=== PATIENT | male | born 1950 | race Caucasian/White ===

== ENCOUNTER 2017-12-03 13:53 | Inpatient (IN) | payer MEDICARE ==
[~2017-12-03] VITALS: Ht 180.3 cm; Wt 108.0 kg
[~2017-12-03 13:53] MED LIST: DEXAMETHASONE SOD PHOS 4 MG/ML VIAL IV ONE; LACTATED RINGER'S 1000 ML INJ 1,000 ML IV ONE; LIDOCAINE HCL 1% PF 5 ML SYRINGE OTHER ONE; ONDANSETRON HCL 4 MG/2 ML VIAL IV ONE; PHENYLEPH/NS 1000 MCG/10 ML SYR IV ONE; PHENYLEPHRINE HCL 10 MG/ML VIAL IV ONE; PROPOFOL 200 MG/20 ML AMP IV ONE; ROCURONIUM INJ 50 MG/5 ML SYRINGE IV PUSH ONE; ceFAZolin INJ 1,000 MG VIAL IV ONE; ePHEDrine/NS 25 MG/5 ML SYRINGE IV ONE
[2017-12-03] MEDS ORDERED: HYDROmorphone HCL PF 2 MG/ML VIAL ONE (14:02)
[2017-12-03] MEDS: ceFAZolin 2 GM PREMIX 50 ML ONE ×2 (14:08→18:20)
[2017-12-03] MEDS ORDERED: DIPHTH/TETANUS/ACEL PERTUSSIS (BOOSTER) 0.5 ML VIAL/PFS IM ONE (14:09)
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
[2017-12-03 14:24] LABS: AUTOMATED NEUTROPHIL # 11.4 TH/MM3 (1.8-7.7); BASOPHIL % 0.2 % (0.0-2.0); EOSINOPHIL # 0.1 TH/MM3 (0-0.4); EOSINOPHIL % 0.8 % (0.0-4.0); HEMOGLOBIN 16.2 GM/DL (13.0-17.0); LYMPH % 22.6 % (9.0-44.0); LYMPHOCYTE # 3.7 TH/MM3 (1.0-4.8); MEAN CELL VOLUME 86.1 FL (80.0-100.0); MEAN CORPUSCULAR HEMOGLOBIN 29.7 PG (27.0-34.0); MEAN CORPUSCULAR HGB CONC 34.4 % (32.0-36.0); MEAN PLATELET VOLUME 9.5 FL (7.0-11.0); MONO % 6.8 % (0.0-8.0); MONOCYTE # 1.1 TH/MM3 (0-0.9); NEUT % 69.6 % (16.0-70.0); PLATELET COUNT 237 TH/MM3 (150-450); RED BLOOD COUNT 5.46 MIL/MM3 (4.50-5.90); RED CELL DISTRIBUTION WIDTH 13.2 % (11.6-17.2); WHITE BLOOD COUNT 16.4 TH/MM3 (4.0-11.0)
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
[2017-12-03] MEDS ORDERED: IOHEXOL 350 MG/ML 10 ML VIAL (for RAD DIAG) IVCONTRAST ONE (14:32)
[2017-12-03 14:37] VITALS: BP 159/76; PULSE 87; RESP 18; O2SAT 98
[2017-12-03 14:38] LABS: PROTHROMBIN TIME - PATIENT 10.6 SEC (9.8-11.6)
[2017-12-03] MEDS ORDERED: HYDR25TA5 PO (14:42)
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
[2017-12-03] MEDS ORDERED: ONDANSETRON HCL 4 MG/2 ML VIAL IV PUSH PRN (15:30)
[2017-12-03] MEDS ORDERED: ACETAMINOPHEN/HYDROcodone 325 MG/5 MG TAB PO PRN (15:30)
[2017-12-03] MEDS ORDERED: SODIUM CHLORIDE 0.9% FLUSH 10 ML FLUSH IV FLUSH PRN (15:30)
[2017-12-03] MEDS ORDERED: ENALAPRILAT 1.25 MG/ML VIAL IV PUSH PRN (15:30)
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
[2017-12-03 17:04] VITALS: BP 133/60; PULSE 89; RESP 18; O2SAT 97
[2017-12-03] MEDS: SODIUM CHLOR 0.9% 1000 ML INJ 1,000 ML IV SCH ×2 (17:08→21:12)
[2017-12-03] MEDS: ACETAMINOPHEN/HYDROcodone 325 MG/5 MG TAB PO PRN (17:09)
--- NOTE | 2017-12-03 17:12 | RADRPT ---
EXAM DATE/TIME: 12/03/2017 16:25 [facility] COMPARISON: FOOT LEFT LIMITED (2VWS), December 03, 2017, 14:34. INDICATIONS : Fracture MEDICAL HISTORY : None. SURGICAL HISTORY : None. ENCOUNTER: Initial ACUITY: 1 day PAIN SCORE: 4/10 LOCATION: Right clavicle FINDINGS: The examination demonstrates a mildly distracted fracture involving the distal right clavicle. There does appear to be in associated a.c. separation as well. The remainder the visualized osseous structures are intact. CONCLUSION: 1. Distracted fracture and a.c. separation involving the distal right clavicle. Nasim Evans MD on December 03, 2017 at 17:09 Board Certified Radiologist. This report was verified electronically.
[2017-12-03] MEDS ORDERED: GENTAMICIN SULFATE 80 MG/2 ML VIAL ONE ×2 (17:23→19:17)
[2017-12-03] MEDS ORDERED: ACETAMINOPHEN 1000 MG/100 ML 100 ML IV ONE (17:48)
[2017-12-03] MEDS ORDERED: GENTAMICIN 80 MG PREMIX 100 ML IV SCH (18:00)
[2017-12-03] MEDS ORDERED: ceFAZolin INJ 1,000 MG VIAL IV ONE (18:00)
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
[2017-12-03] MEDS: GENTAMICIN INJ 80 MG in SODIUM CHLORIDE 0.9% INJ 100 ML IV SCH (19:20)
[2017-12-03 20:45] VITALS: O2SAT 100
[2017-12-03] MEDS ORDERED: DO NOT ADM ANY ANTICOAGULANT DRUGS PRN (20:45)
--- NOTE | 2017-12-03 20:51 | RADRPT ---
EXAM DATE/TIME: 12/03/2017 19:53 [facility] COMPARISON: FOOT LEFT LIMITED (2VWS), December 03, 2017, 14:34. INDICATIONS : Open fracture- ORIF. EX FIX. MEDICAL HISTORY : None. SURGICAL HISTORY : None. ENCOUNTER: Initial ACUITY: 1 day PAIN SCORE: Non-responsive. LOCATION: Left Foot. FINDINGS: Intra-axial fixation of first and second metatarsal fractures and fracture dislocation of the third t oe. Alignment appears near-anatomic. There is a pin of the second metatarsal and also pin of the firs t metatarsal. CONCLUSION: Pending and external fixation of the left foot. Near-anatomic alignment. Tonny Gonzalez MD on December 03, 2017 at 20:47 Board Certified Radiologist. This report was verified electronically.
[2017-12-03] MEDS ORDERED: *morphine SULFATE 4 MG/ML PERIprocedure ONLY ONE ×2 (20:52→21:20)
[2017-12-03] MEDS ORDERED: DOCUSATE SODIUM 100 MG CAP PO SCH (21:00)
[2017-12-03] MEDS: BACITRACIN TOP OINT 15 GM TUBE TOP SCH (21:00)
--- NOTE | 2017-12-03 21:05 | HHI.PR ---
Immediate Post Op Note Procedure Date: Dec 03, 2017 Pre Op Diagnosis: Fractures left foot, open fracture left 2nd metatarsal Post Op Diagnosis: same Surgeon: Anuja Johnston DPM Senior Energy Consultant(s): Staff Procedure: External fixation left medial foot and percutaneous pinning of first metatarsal fracture External fixation left lateral foot cuboid fracture Percutaneous pinning left 4th metatarsal fracture Open reduction with pinning of left 2nd metatarsal fracture Reduction of dislocation left 2nd and 3rd toes Examination under anesthesia left foot Findings: Laceration 1.5 cm in length noted plantar to left 2nd toe sulcus area with no active bleeding noted currently. Wound does probe to 2nd metatarsal head area. No gross contamination or debris noted. Irrigation with 3L normal saline. Culture taken of wound prior to wound excision and reapproximation with 2-0 nylon suture. Dorsal incision made over left 2nd MTP joint and fracture reduced and pinned using C-arm guidance. C-arm utilized to identify fractures to proximal 1st metatarsal and external fixator placed dorsomedially into both distal 1st metatarsal and medial cuneiform. 1st metatarsal fracture reduced and external fixator placed to span the fracture. Percutaneous pin placed across fracture for additional stabilization. Stressed lisfranc joint and found to be stable. C-arm utilized to identify fracture to cuboid and external fixator placed laterally in distal calcaneus and proximal 5th metatarsal base to span the area. 4th metatarsal fracture pinned percutaneously. Dressing with xeroform to pin sites, 4x4, cast padding, splint, ailin left foot. NWB left per PT recommendations. Await culture results. No plan for further surgery unless culture positive. Patient will need removal of hardware in approximately 6-8 weeks pending follow up xrays and possible CT scan prior to removal. Additional Information: 2g ancef IV 80mg Gentamicin IV Complications: None Specimen(s) removed: culture left foot Estimated blood loss: 20mL Anesthesia: General Drains: None Tourniquet time (min at mmHg) n/a Patient to: PACU Patient Condition: Good Implant/Devices: SEE IMPLANT LOG (if applicable) Date/Time of Procedure: SEE SURGICAL CARE RECORD Anuja Johnston DPM Dec 03, 2017 21:05
--- NOTE | 2017-12-03 21:36 | RADRPT ---
EXAM DATE/TIME: 12/03/2017 20:59 [facility] COMPARISON: FOOT LEFT LIMITED (2VWS), December 03, 2017, 19:53. INDICATIONS : Post op. MEDICAL HISTORY : None. SURGICAL HISTORY : None. ENCOUNTER: Initial ACUITY: 1 day PAIN SCORE: 5/10 LOCATION: Left foot FINDINGS: Postoperative conventional radiographs show external fixation of the left foot. There are pins of the proximal first metatarsal and distally the second metatarsal. Third metatarsophalangeal joint disloc ation has been reduced. There is an apparent pin across the third tarsometatarsal joint as well. CONCLUSION: External fixation and pinning of the left foot. Near-anatomic alignment. Tonny Gonzalez MD on December 03, 2017 at 21:32 Board Certified Radiologist. This report was verified electronically.
[2017-12-03 22:15] VITALS: BP 122/66; PULSE 96; RESP 18; TEMP 98.6; O2SAT 98
[2017-12-03] MEDS: MORPHINE SULFATE 8 MG/ML INJ IV PUSH PRN (23:10)
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
[2017-12-04] VITALS (7 sets, daily range): BP systolic 115–162; BP diastolic 61–73; PULSE 71–90; RESP 18; TEMP 96.8–98.9; O2SAT 93–97
[2017-12-04 00:49] LABS: HEMATOCRIT 37.4 % (39.0-51.0); HEMOGLOBIN 13.1 GM/DL (13.0-17.0)
[2017-12-04] MEDS: ACETAMINOPHEN/HYDROcodone 325 MG/5 MG TAB PO PRN (01:33)
[2017-12-04] MEDS: MORPHINE SULFATE 8 MG/ML INJ IV PUSH PRN ×5 (02:43→20:38)
[2017-12-04] MEDS: GENTAMICIN INJ 80 MG in SODIUM CHLORIDE 0.9% INJ 100 ML IV SCH ×3 (02:44→19:01)
[2017-12-04 04:44] LABS: AUTOMATED NEUTROPHIL # 9.7 TH/MM3 (1.8-7.7); BASOPHIL % 0.1 % (0.0-2.0); HEMOGLOBIN 12.6 GM/DL (13.0-17.0); LYMPH % 6.2 % (9.0-44.0); LYMPHOCYTE # 0.7 TH/MM3 (1.0-4.8); MEAN CELL VOLUME 86.2 FL (80.0-100.0); MEAN CORPUSCULAR HEMOGLOBIN 30.1 PG (27.0-34.0); MEAN PLATELET VOLUME 9.6 FL (7.0-11.0); MONOCYTE # 0.7 TH/MM3 (0-0.9); NEUT % 87.7 % (16.0-70.0); PLATELET COUNT 171 TH/MM3 (150-450); RED BLOOD COUNT 4.17 MIL/MM3 (4.50-5.90); WHITE BLOOD COUNT 11.1 TH/MM3 (4.0-11.0)
[2017-12-04 04:55] LABS: ALBUMIN 3.4 GM/DL (3.4-5.0); ALT (GPT) 48 U/L (12-78); AST (GOT) 36 U/L (15-37); BICARBONATE 26.3 MEQ/L (21.0-32.0); BLOOD UREA NITROGEN 14 MG/DL (7-18); CALCIUM 8.4 MG/DL (8.5-10.1); CHLORIDE 103 MEQ/L (98-107); CREATININE 0.99 MG/DL (0.60-1.30); GLOMERULAR FILTRATION RATE 76 ML/MIN (>89); GLUCOSE,RANDOM 158 MG/DL (74-106); SODIUM (NA) 138 MEQ/L (136-145)
[2017-12-04 04:57] LABS: ALKALINE PHOSPHATASE 49 U/L (45-117); TOTAL BILIRUBIN ADULT 0.7 MG/DL (0.2-1.0); TOTAL PROTEIN 6.4 GM/DL (6.4-8.2)
[2017-12-04] MEDS ORDERED: ACETAMINOPHEN 325 MG TAB PO PRN (07:00)
--- NOTE | 2017-12-04 07:41 | RADRPT ---
EXAM DATE/TIME: 12/04/2017 06:39 [facility] COMPARISON: CHEST SINGLE AP, December 03, 2017, 13:54. INDICATIONS : Short of breath, pain right clavaicle MEDICAL HISTORY : left foot fractures, left clavicle fracture SURGICAL HISTORY : external fixation left foot ENCOUNTER: Subsequent ACUITY: 2 days PAIN SCORE: 5/10 LOCATION: Bilateral chest FINDINGS: Mild air space disease is seen in the left base. Lungs are otherwise clear. Heart and mediastinal structures are within normal limits. Mildly distracted fracture seen on the lateral right clavicle. CONCLUSION: 1. Mild left basilar airspace disease characteristic of atelectasis. 2. Fractured lateral right clavicle. 3. Otherwise stable chest with no other evidence of acute process. Theo Sandoval MD on December 04, 2017 at 7:37 Board Certified Radiologist. This report was verified electronically.
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
[2017-12-04] MEDS: HYDROCHLOROTHIAZIDE 25 MG TAB PO SCH (07:59)
[2017-12-04] MEDS: DOCUSATE SODIUM 50 MG/SENNA 8.6 MG TAB PO SCH ×2 (07:59→20:41)
[2017-12-04] MEDS: BACITRACIN TOP OINT 15 GM TUBE TOP SCH ×2 (07:59→20:42)
[2017-12-04] MEDS: SODIUM CHLOR 0.9% 1000 ML INJ 1,000 ML IV SCH ×2 (09:18→23:00)
[2017-12-04] MEDS: ACETAMINOPHEN/HYDROcodone 325 MG/10 MG TAB PO PRN ×3 (10:39→19:01)
--- NOTE | 2017-12-04 14:47 | RADRPT ---
EXAM DATE/TIME: 12/04/2017 10:19 [facility] COMPARISON: No previous studies available for comparison. INDICATIONS : Fall. MEDICAL HISTORY : Hypertension. Hypercholesterolemia. Carcinoma, prostate. Diabetic. SURGICAL HISTORY : Left knee surgery. Right arm surgery. ENCOUNTER: Initial ACUITY: 1 day PAIN SCORE: 0/10 LOCATION: Bilateral neck PEAK SYSTOLIC VELOCITIES (cm/sec): ICA/CCA RATIO: Right: 0.8 Left: 1.0 ICA: Right: 92 Left: 140 CCA: Right: 114 Left: 145 ECA: Right: 206 Left: 163 VERTEBRAL: Right: 40 antegrade Left: 67 antegrade Elevated flow velocities and ICA/CCA ratios have been found to correlate with increased degrees of vessel stenosis, calculated as percentage of diameter relative to a normal segment of distal ICA/CCA CONSENSUS PANEL GARCIA-SCALE and DOPPLER US CRITERIA FOR DIAGNOSIS OF ICA STENOSIS FINDINGS: RIGHT CAROTID: No significant stenosis is visualized. The waveforms are within normal limits. LEFT CAROTID: No significant stenosis is visualized. The waveforms are within normal limits. VERTEBRAL ARTERIES: Antegrade flow is seen in both vertebral arteries. MISCELLANEOUS: None. CONCLUSION: 1. Moderate visible plaque carotid arteries bilaterally, left greater than right. Previously ratios a re within normal limits. No definite evidence for hemodynamically significant stenosis. Pedro Hendricks MD on December 04, 2017 at 14:43 Board Certified Radiologist. This report was verified electronically.
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
[2017-12-04 16:35] LABS: HEMOGLOBIN A1C 5.6 % (4.3-6.0)
--- NOTE | 2017-12-04 17:44 | PD.POD ---
Subjective Podiatric Problems Fractures left foot, open fracture left 2nd metatarsal s/p 12/03/17 [facility] External fixation left medial foot and percutaneous pinning of first metatarsal fracture External fixation left lateral foot cuboid fracture Percutaneous pinning left 4th metatarsal fracture Open reduction with pinning of left 2nd metatarsal fracture Reduction of dislocation left 2nd and 3rd toes Examination under anesthesia left foot Past Med/Surg/Social History Social History Smoking Status: Never Smoker Objective Vital Signs Vital Signs Date Time Temp Pulse Resp B/P (MAP) Pulse Ox O2 Delivery O2 Flow Rate FiO2 12/04/17 16:25 98.5 78 18 115/64 (81) 97 12/04/17 12:07 97.3 80 18 118/61 (80) 93 12/04/17 10:35 93 Nasal Cannula 2.00 12/04/17 07:54 96.8 71 18 162/67 (98) 93 12/04/17 04:00 98.1 86 18 116/61 (79) 96 12/04/17 00:00 98.9 90 18 135/61 (85) 96 12/03/17 22:15 98.6 96 18 122/66 (84) 98 12/03/17 21:45 94 20 112/66 (81) 99 Nasal Cannula 2 12/03/17 21:30 87 12 98/54 (69) 98 Nasal Cannula 2 12/03/17 21:15 88 16 105/56 (72) 97 Nasal Cannula 2 12/03/17 21:00 93 18 110/57 (74) 98 Nasal Cannula 2 12/03/17 20:45 98.1 95 16 115/60 (78) 100 Nasal Cannula 2 12/03/17 20:45 100 Nasal Cannula 2.00 Coded Allergies: No Known Allergies (Verified Allergy, Unknown, 12/03/17) Other Results Last 72 hours Impressions Chest X-Ray 12/04/17 0600 Signed Impressions: Service Date/Time: Monday, December 04, 2017 06:39 - CONCLUSION: 1. Mild left basilar airspace disease characteristic of atelectasis. 2. Fractured lateral right clavicle. 3. Otherwise stable chest with no other evidence of acute process. Theo Sandoval MD Carotid Artery Ultrasound 12/04/17 0000 Signed Impressions: Service Date/Time: Monday, December 04, 2017 10:19 - CONCLUSION: 1. Moderate visible plaque carotid arteries bilaterally, left greater than right. Previously ratios are within normal limits. No definite evidence for hemodynamically significant stenosis. Pedro Hendricks MD Foot X-Ray 12/03/17 1411 Signed Impressions: Service Date/Time: November 14:34 - CONCLUSION: 1. Multiple fractures of the left foot as above with persistent dislocation at the left third metatarsophalangeal joint. Pedro Hendricks MD Pelvis X-Ray 12/03/171355 Signed Impressions: Service Date/Time: November 13:54 - CONCLUSION: 1. No acute fracture of the pelvis identified. Nasim Evans MD Head CT 12/03/171355 Signed Impressions: Service Date/Time: November 14:14 - CONCLUSION: 1. No acute intracranial abnormality is identified. Nasim Evans MD Chest X-Ray 12/03/171355 Signed Impressions: Service Date/Time: November 13:54 - CONCLUSION: 1. The heart is at the upper limits of normal in size. 2. No acute abnormality identified. Nasim Evans MD Chest CT 12/03/171355 Signed Impressions: Service Date/Time: November 14:21 - CONCLUSION: 1. Distal right clavicle fracture. Hemorrhage around the right sternoclavicular joint with mild widening of the sternoclavicular joint. 2. Negative for traumatic aortic injury. No effusions are pneumothorax. 3. Moderate coronary calcifications. Pdero Hendricks MD Cervical Spine CT 12/03/171355 Signed Impressions: Service Date/Time: November 14:14 - CONCLUSION: 1. No acute findings. Mild degenerative disc disease. No canal stenosis. Pedro Hendricks MD Abdomen/Pelvis CT 12/03/17 879 Signed Impressions: Service Date/Time: November 14:21 - CONCLUSION: 1. No findings to indicate acute intra-abdominal trauma are identified. 2. 2.2 cm simple cyst within the left lobe of the liver. 3. 1.7 x 2 cm mass in the right adrenal land. This is indeterminate by post contrast CT imaging. 4. Degenerative changes throughout the lumbar spine with bilateral pars defects at L5. Nasim Evans MD Lower Extremity CT 12/03/17 0000 Signed Impressions: Service Date/Time: November 15:29 - CONCLUSION: 1. Multiple left foot fractures as above. Pedro Hendricks MD Foot X-Ray 12/03/17 0000 Signed Impressions: Service Date/Time: November 20:59 - CONCLUSION: External fixation and pinning of the left foot. Near-anatomic alignment. Tonny Gonzalez MD Foot X-Ray 12/03/17 0000 Signed Impressions: Service Date/Time: November 19:53 - CONCLUSION: Pending and external fixation of the left foot. Near-anatomic alignment. Tonny Gonzalez MD Foot X-Ray 12/03/17 0000 Signed Impressions: Service Date/Time: November 13:54 - CONCLUSION: 1. Multiple fractures involving the left foot as above. Nasim Evans MD Clavicle X-Ray 12/03/17 0000 Signed Impressions: Service Date/Time: November 16:25 - CONCLUSION: 1. Distracted fracture and a.c. separation involving the distal right clavicle. Nasim Evans MD Exam-Podiatry Remarks Dressing clean, dry, intact left foot with splint pain controlled compartments soft neurovascularly intact Assessment & Plan A/P Fractures left foot, open fracture left 2nd metatarsal s/p 12/03/17 [place] External fixation left medial foot and percutaneous pinning of first metatarsal fracture External fixation left lateral foot cuboid fracture Percutaneous pinning left 4th metatarsal fracture Open reduction with pinning of left 2nd metatarsal fracture Reduction of dislocation left 2nd and 3rd toes Examination under anesthesia left foot Upon analysis of postoperative imaging, patient will go back to OR to further stabilize 3rd MTP joint and 1st metatarsal fractures To OR Thursday Anuja Johnston DPM Dec 04, 2017 17:44
[2017-12-04] MEDS ORDERED: POVIDONE IODINE 5% (ANTISEPSIS KIT) 4 APPLICATIONS EACH NARE PRN (22:45)
[2017-12-04] MEDS ORDERED: LACTATED RINGER'S 1000 ML IV PRN (22:45)
[2017-12-04] MEDS ORDERED: CHLORHEXIDINE GLUCONATE 2 % 1 PACK (2 CLOTHS) TOPICAL PRN (22:45)
[2017-12-04] MEDS ORDERED: INSULIN HUMAN REGULAR 1,000 UNITS/10 ML VIAL SQ PRN (22:45)
[2017-12-04] MEDS ORDERED: SODIUM CHLORID 0.9% 500 ML IV PRN (22:45)
[2017-12-04] MEDS ORDERED: METOPROLOL TARTRATE 25 MG TAB PO PRN (22:45)
[2017-12-05] VITALS (7 sets, daily range): BP systolic 127–151; BP diastolic 59–85; PULSE 68–93; RESP 18–19; TEMP 96.3–98.9; O2SAT 92–96
[2017-12-05] MEDS: MORPHINE SULFATE 8 MG/ML INJ IV PUSH PRN ×4 (02:16→20:16)
[2017-12-05] MEDS: GENTAMICIN INJ 80 MG in SODIUM CHLORIDE 0.9% INJ 100 ML IV SCH ×3 (02:54→18:12)
[2017-12-05 06:53] LABS: HEMATOCRIT 30.5 % (39.0-51.0); HEMOGLOBIN 10.6 GM/DL (13.0-17.0)
[2017-12-05] MEDS: SODIUM CHLOR 0.9% 1000 ML INJ 1,000 ML IV SCH ×2 (09:00→18:33)
[2017-12-05] MEDS: BACITRACIN TOP OINT 15 GM TUBE TOP SCH ×2 (09:00→21:20)
[2017-12-05] MEDS: HYDROCHLOROTHIAZIDE 25 MG TAB PO SCH (09:41)
[2017-12-05] MEDS: DOCUSATE SODIUM 50 MG/SENNA 8.6 MG TAB PO SCH ×2 (09:41→21:18)
[2017-12-05] MEDS: ACETAMINOPHEN/HYDROcodone 325 MG/10 MG TAB PO PRN ×4 (09:44→23:08)
--- NOTE | 2017-12-05 12:55 | PD.POD ---
Subjective Podiatric Problems Fractures left foot, open fracture left 2nd metatarsal s/p 12/03/17 [facility] External fixation left medial foot and percutaneous pinning of first metatarsal fracture External fixation left lateral foot cuboid fracture Percutaneous pinning left 4th metatarsal fracture Open reduction with pinning of left 2nd metatarsal fracture Reduction of dislocation left 2nd and 3rd toes Examination under anesthesia left foot Past Med/Surg/Social History Social History Smoking Status: Never Smoker Objective Vital Signs Vital Signs Date Time Temp Pulse Resp B/P (MAP) Pulse Ox O2 Delivery O2 Flow Rate FiO2 12/05/17 12:00 97.5 73 19 127/59 (81) 95 12/05/17 08:00 98.3 68 19 131/65 (87) 92 12/05/17 05:54 95 Nasal Cannula 12/05/17 04:00 98.6 76 18 151/85 (107) 95 12/05/17 00:00 98.9 93 18 145/74 (97) 96 12/04/17 20:12 98.8 74 18 138/73 (94) 95 12/04/17 16:25 98.5 78 18 115/64 (81) 97 Coded Allergies: No Known Allergies (Verified Allergy, Unknown, 12/03/17) Assessment & Plan A/P Fractures left foot, open fracture left 2nd metatarsal s/p 12/03/17 [place] External fixation left medial foot and percutaneous pinning of first metatarsal fracture External fixation left lateral foot cuboid fracture Percutaneous pinning left 4th metatarsal fracture Open reduction with pinning of left 2nd metatarsal fracture Reduction of dislocation left 2nd and 3rd toes Examination under anesthesia left foot OR delayed today until unknown time. Ok to eat now. Put on OR schedule for tomorrow 8 a.m. NPO after midnight Anuja Stephens DPM Dec 05, 2017 12:55
[2017-12-05] MEDS: METHOCARBAMOL 500 MG TAB PO SCH ×2 (14:06→21:18)
[2017-12-05] MEDS: LIDOCAINE HCL 5% PATCH T-DERMAL SCH (14:08)
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
[2017-12-05] MEDS ORDERED: WALKER WHEELS/F1 MIS (16:32)
[2017-12-05] MEDS ORDERED: WHEEMIS3 (16:32)
--- NOTE | 2017-12-05 16:49 | EKG ---
Date Performed: 12/04/2017 Time Performed: 15:09:15 PTAGE: 67 years EKG: Sinus rhythm MODERATE INTRAVENTRICULAR CONDUCTION DELAY MODERATE VOLTAGE CRITERIA FOR LVH, CONSIDER NORMAL VARIAN T BORDERLINE ECG NO PREVIOUS TRACING DOCTOR: Constantino Mcallister Interpretating Date/Time 12/05/2017 16:47:44
--- NOTE | 2017-12-05 20:43 | HHI.FF ---
Face to Face Verification Diagnosis: (1) Right clavicle fracture (2) Fracture of metatarsal of left foot, open (3) Separation of right acromioclavicular joint Physical Therapy Order: Evaluate and Treat, Improve ambulation, Strength and gait training Home Health Nursing Order: Nursing assessment with vital signs I have seen patient Trenton Hernandez on 12/05/17. My clinical findings support the need for the requested home health care services because: Limited ability to care for self High risk of falls I certify that my clinical findings support that this patient is homebound because: Post-op weakness Unsteady gait/balance Dereck Caro Dec 05, 2017 20:43
[2017-12-05] MEDS: REMOVE OLD LIDOCAINE PATCH T-DERMAL SCH (21:00)
[2017-12-05] MEDS: traZODone HCL 50 MG TAB PO SCH (21:18)
[2017-12-06] VITALS (9 sets, daily range): BP systolic 127–149; BP diastolic 65–72; PULSE 62–78; RESP 16–19; TEMP 97.6–99.4; O2SAT 92–97
[2017-12-06] MEDS: GENTAMICIN INJ 80 MG in SODIUM CHLORIDE 0.9% INJ 100 ML IV SCH ×3 (02:23→17:38)
[2017-12-06] MEDS: MORPHINE SULFATE 8 MG/ML INJ IV PUSH PRN ×3 (02:26→23:23)
[2017-12-06] MEDS: SODIUM CHLOR 0.9% 1000 ML INJ 1,000 ML IV SCH (05:00)
--- NOTE | 2017-12-06 05:52 | RADRPT ---
EXAM DATE/TIME: 12/06/2017 04:53 [facility] COMPARISON: CHEST SINGLE AP, December 04, 2017, 6:39. INDICATIONS : Evaluate for pulmonary contusion. MEDICAL HISTORY : None. SURGICAL HISTORY : None. ENCOUNTER: Subsequent ACUITY: 2 days PAIN SCORE: Non-responsive. LOCATION: Bilateral chest FINDINGS: A single view of the chest demonstrates marked hypoinflation with minimal basilar atelectasis. No con fluent infiltrate. Accounting for low lung volumes, the heart size is upper limits of normal. Distrac harrison fracture of the distal right clavicle. CONCLUSION: 1. Hypoinflation with bibasilar atelectatic changes, left greater than right. 2. Distracted right distal clavicular fracture. Ady Roca MD on December 06, 2017 at 5:49 Board Certified Radiologist. This report was verified electronically.
[2017-12-06] MEDS: METHOCARBAMOL 500 MG TAB PO SCH ×3 (06:00→21:17)
[2017-12-06] MEDS ORDERED: ACETAMINOPHEN 1000 MG/100 ML 100 ML IV ONE (07:17)
[2017-12-06] MEDS ORDERED: BUPIVACAINE HCL PF 0.25% 30 ML VIAL ONE (08:28)
[2017-12-06] MEDS ORDERED: ceFAZolin INJ 1,000 MG VIAL IV ONE ×2 (08:38→12:00)
[2017-12-06] MEDS ORDERED: *MEPERIDINE 25 MG INJ VIAL PERIprocedural Use ONLY ONE (10:08)
--- NOTE | 2017-12-06 10:21 | HHI.PR ---
Immediate Post Op Note Procedure Date: Dec 06, 2017 Pre Op Diagnosis: 1. Left First metatarsal fracture, comminuted, displaced 2. 3rd digit fracture/dislocation of [id number] Metatarsophalangeal joint 3. Multiple left foot fractures Post Op Diagnosis: same Surgeon: Anuja Johnston DPM Castings Trimmer(s): Staff Procedure: 1. ORIF left 1st metatarsal fracture 2. percutaneous pinning of 3rd toe/metatarsophalangeal joint dislocation 3. Adjustment of external fixator left foot Findings: Consistent with diagnosis. Left 1st metatarsal base fracture highly comminuted and unstable. External fixator removed, but pins left in place and incision made dorsomedially along 1st metatarso-cuneiform joint to access fracture, taking care to avoid neurovascular structures. Fracture adequately reduced and alignment of joint achieved and confirmed with C-arm, followed by dorsomedial synthes locking plate fixation to further stabilize. External fixator deemed necessary to keep in place due to instability of fracture and to reduce compression at joint to protect cartilage. Irrigation and closure with 3-0 vicryl and 2-0 nylon. Xeroform, 4x4, cast padding, posterior splint, ailin applied after external fixator re-applied. Left 3rd digit with fracture of medial base of 3rd proximal phalanx and inability to remain both reduced and relocated at 3rd metatarsophalangeal joint. Joint reduced and percutaneous pinning to maintain stability of 3rd metatarsophalangeal joint and fracture appears to reduce, as well. NWB Left foot. Will need pins removed and external fixator removed in approximately 6 weeks. Will coordinate with doctor in his hometown for further treatment. Discussed with he may need to have further surgery for removal of hardware vs removal of bone at joints of forefoot to reduce pain vs fusion at joints affected due to continued post-traumatic arthritic changes. Discussed he may be able to have functional foot with reduced pain with orthotics in shoe gear and periodic oral vs. injectable antiinflammatories long- term. No further surgery planned Additional Information: 2g ancef IV preop Complications: n/a Specimen(s) removed: n/a Estimated blood loss: 10mL Anesthesia: General, Local (20mL 0.25% marcaine plain) Drains: None IVF Tourniquet time (min at mmHg) n/a Patient to: PACU Patient Condition: Good Date/Time of Procedure: SEE SURGICAL CARE RECORD Anuja Johnston DPM Dec 06, 2017 10:21
[2017-12-06] MEDS ORDERED: DO NOT ADM ANY ANTICOAGULANT DRUGS PRN (10:30)
--- NOTE | 2017-12-06 10:32 | RADRPT ---
EXAM DATE/TIME: 12/06/2017 09:37 [facility] COMPARISON: FOOT LEFT COMPLETE ([id number]), December 03, 2017, 20:59. INDICATIONS : Open reduction left foot. MEDICAL HISTORY : None. SURGICAL HISTORY : None. ENCOUNTER: Subsequent ACUITY: 4 - 6 days PAIN SCORE: Non-responsive. LOCATION: Left lateral FINDINGS: 3 views of the postoperative left foot demonstrate interval placement of surgical plate and screws tr aversing a comminuted fracture of the first metatarsal, K wires traversing the second and third metat arsals. Stable K wire traversing the base of the fourth metatarsal and cuneiforms. External fixator i s present. Near-anatomic alignment of the osseous structures. CONCLUSION: Status post internal fixation with good anatomic alignment. Patti Arthur MD on December 06, 2017 at 10:29 Board Certified Radiologist. This report was verified electronically.
[2017-12-06] MEDS: ACETAMINOPHEN/HYDROcodone 325 MG/10 MG TAB PO PRN ×3 (10:56→21:17)
[2017-12-06] MEDS: DOCUSATE SODIUM 50 MG/SENNA 8.6 MG TAB PO SCH ×2 (10:56→20:33)
[2017-12-06] MEDS: BACITRACIN TOP OINT 15 GM TUBE TOP SCH ×2 (10:57→20:35)
[2017-12-06] MEDS: HYDROCHLOROTHIAZIDE 25 MG TAB PO SCH (10:57)
[2017-12-06] MEDS: LIDOCAINE HCL 5% PATCH T-DERMAL SCH (10:57)
[2017-12-06] MEDS ORDERED: LIDOCAINE HCL 1% PF 5 ML SYRINGE OTHER ONE (12:00)
[2017-12-06] MEDS ORDERED: ONDANSETRON HCL 4 MG/2 ML VIAL IV ONE (12:00)
[2017-12-06] MEDS ORDERED: DEXAMETHASONE SOD PHOS 4 MG/ML VIAL IV ONE (12:00)
[2017-12-06] MEDS ORDERED: PROPOFOL 200 MG/20 ML AMP IV ONE (12:00)
--- NOTE | 2017-12-06 12:17 | RADRPT ---
EXAM DATE/TIME: 12/06/2017 10:03 [facility] COMPARISON: FOOT LEFT COMPLETE ([id number]), December 06, 2017, 9:37. INDICATIONS : Post operative for surgical repair of multiple bones in left foot. MEDICAL HISTORY : None. SURGICAL HISTORY : None. ENCOUNTER: Initial ACUITY: 1 day PAIN SCORE: Non-responsive. LOCATION: Left foot. FINDINGS: Crosstable lateral views of the postoperative left foot demonstrates stable placement of external fix ator with interval ORIF of a comminuted mildly displaced first metatarsal fracture and K wires paola sing the second and third digits as well as at the base of the fourth digit and adjacent cuneiforms. Near-anatomic alignment of the osseous structures. CONCLUSION: Status post ORIF of multiple structures with near anatomic alignment. Patti Arthur MD on December 06, 2017 at 12:13 Board Certified Radiologist. This report was verified electronically.
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
[2017-12-06] MEDS ORDERED: LACTULOSE SYRUP 20 GM/30 ML CUP PO ONE (17:45)
[2017-12-06] MEDS: ENOXAPARIN SODIUM 30 MG/0.3 ML SYRINGE SQ SCH (19:33)
[2017-12-06] MEDS: traZODone HCL 50 MG TAB PO SCH (20:33)
[2017-12-06] MEDS: REMOVE OLD LIDOCAINE PATCH T-DERMAL SCH (20:35)
[2017-12-07] VITALS (10 sets, daily range): BP systolic 148–161; BP diastolic 72–82; PULSE 57–74; RESP 16–20; TEMP 97.2–99; O2SAT 93–97
[2017-12-07] MEDS: ACETAMINOPHEN/HYDROcodone 325 MG/10 MG TAB PO PRN ×6 (03:06→23:53)
[2017-12-07 04:25] LABS: HEMATOCRIT 30.7 % (39.0-51.0); HEMOGLOBIN 10.5 GM/DL (13.0-17.0)
[2017-12-07] MEDS ORDERED: HYDR-3516 PO (06:27)
[2017-12-07] MEDS ORDERED: PERI PO (06:27)
[2017-12-07] MEDS: METHOCARBAMOL 500 MG TAB PO SCH ×3 (06:38→22:19)
[2017-12-07] MEDS: DOCUSATE SODIUM 50 MG/SENNA 8.6 MG TAB PO SCH ×2 (08:08→19:55)
[2017-12-07] MEDS: HYDROCHLOROTHIAZIDE 25 MG TAB PO SCH (08:08)
[2017-12-07] MEDS: LIDOCAINE HCL 5% PATCH T-DERMAL SCH (08:09)
[2017-12-07] MEDS: ENOXAPARIN SODIUM 30 MG/0.3 ML SYRINGE SQ SCH ×2 (08:09→19:54)
[2017-12-07] MEDS: BACITRACIN TOP OINT 15 GM TUBE TOP SCH ×2 (08:14→19:57)
[2017-12-07] MEDS ORDERED: COMMODE 3-IN-11 MIS (13:20)
[2017-12-07] MEDS ORDERED: METH500T3 PO (13:22)
[2017-12-07] MEDS ORDERED: XARE10TA PO (13:22)
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
--- NOTE | 2017-12-07 14:40 | RADRPT ---
EXAM DATE/TIME: 12/07/2017 13:40 [facility] COMPARISON: FOOT LEFT COMPLETE ([id number]), December 06, 2017, 10:03. INDICATIONS : Fracture. MEDICAL HISTORY : right clavicle fracture SURGICAL HISTORY : left lower foot and heel surgery ENCOUNTER: Initial ACUITY: 4 - 6 days PAIN SCORE: 8/10 LOCATION: Right clavicle FINDINGS: The examination demonstrates a moderately displaced fracture of the distal right clavicle. Visualized bony structures are grossly intact. CONCLUSION: 1. Moderately displaced fracture of the distal right clavicle. Nasim Evans MD on December 07, 2017 at 14:37 Board Certified Radiologist. This report was verified electronically.
[2017-12-07] MEDS: traZODone HCL 50 MG TAB PO SCH (19:54)
[2017-12-07] MEDS: REMOVE OLD LIDOCAINE PATCH T-DERMAL SCH (19:59)
--- NOTE | 2017-12-07 21:21 | HHI.PR ---
Subjective Remarks Patient seen bedside with family present. Patient states his pain is well controlled. He is looking forward to going home. Objective Vital Signs Date Time Temp Pulse Resp B/P (MAP) Pulse Ox O2 Delivery O2 Flow Rate FiO2 12/07/17 20:58 94 12/07/17 16:24 18 12/07/17 15:49 98.0 63 17 150/80 (103) 95 12/07/17 11:50 97.3 61 17 148/81 (103) 95 12/07/17 08:15 93 21 12/07/17 08:00 57 12/07/17 07:48 97.2 62 17 161/72 (101) 95 12/07/17 04:00 98.0 67 16 156/76 (102) 95 12/07/17 00:40 68 12/07/17 00:00 98.6 74 17 150/72 (98) 97 I/O 12/06/17 12/06/17 12/06/17 12/07/17 12/07/17 12/07/17 07:00 15:00 23:00 07:00 15:00 23:00 Intake Total 1101 ml 850 ml 960 ml 120 ml 480 ml Output Total 600 ml 10 ml Balance 501 ml 840 ml 960 ml 120 ml 480 ml Intake Oral 0 ml 960 ml 120 ml 480 ml IV Total 1101 ml Other 850 ml Output Urine Total 600 ml Estimated Blood Loss 10 ml # Voids 3 1 1 4 # Bowel Movements 0 2 Result Diagram: 12/07/17 0407 12/04/17 0406 Imaging Last Impressions Clavicle X-Ray 12/07/17 0000 Signed Impressions: Service Date/Time: Thursday, December 07, 2017 13:40 - CONCLUSION: 1. Moderately displaced fracture of the distal right clavicle. Nasim Evans MD Chest X-Ray 12/06/17 0600 Signed Impressions: Service Date/Time: Wednesday, December 06, 2017 04:53 - CONCLUSION: 1. Hypoinflation with bibasilar atelectatic changes, left greater than right. 2. Distracted right distal clavicular fracture. Ady Roca MD Foot X-Ray 12/06/17 0000 Signed Impressions: Service Date/Time: Wednesday, December 06, 2017 09:37 - CONCLUSION: Status post internal fixation with good anatomic alignment. Patti Arthur MD Carotid Artery Ultrasound 12/04/17 0000 Signed Impressions: Service Date/Time: Monday, December 04, 2017 10:19 - CONCLUSION: 1. Moderate visible plaque carotid arteries bilaterally, left greater than right. Previously ratios are within normal limits. No definite evidence for hemodynamically significant stenosis. Pedro Hendricks MD Pelvis X-Ray 12/03/171355 Signed Impressions: Service Date/Time: November 13:54 - CONCLUSION: 1. No acute fracture of the pelvis identified. Nasim Evans MD Head CT 12/03/17 135 Signed Impressions: Service Date/Time: November 14:14 - CONCLUSION: 1. No acute intracranial abnormality is identified. Nasim Evans MD Chest CT 12/03/171355 Signed Impressions: Service Date/Time: November 14:21 - CONCLUSION: 1. Distal right clavicle fracture. Hemorrhage around the right sternoclavicular joint with mild widening of the sternoclavicular joint. 2. Negative for traumatic aortic injury. No effusions are pneumothorax. 3. Moderate coronary calcifications. Pedro Hendricks MD Cervical Spine CT 12/03/17 135 Signed Impressions: Service Date/Time: November 14:14 - CONCLUSION: 1. No acute findings. Mild degenerative disc disease. No canal stenosis. Pedro Hendricks MD Abdomen/Pelvis CT 12/03/17 135 Signed Impressions: Service Date/Time: November 14:21 - CONCLUSION: 1. No findings to indicate acute intra-abdominal trauma are identified. 2. 2.2 cm simple cyst within the left lobe of the liver. 3. 1.7 x 2 cm mass in the right adrenal land. This is indeterminate by post contrast CT imaging. 4. Degenerative changes throughout the lumbar spine with bilateral pars defects at L5. Nasim Evans MD Lower Extremity CT 12/03/17 0000 Signed Impressions: Service Date/Time: November 15:29 - CONCLUSION: 1. Multiple left foot fractures as above. Pedro Hendricks MD Objective Remarks Splint clean, dry and intact to left foot. Active/passive DF/PF digits. No reported sensation changes. MINE SURVEYOR under 3 secs to digits x5 left foot. Ecchymosis noted to digits. No hyperalgesia noted to left foot. Medications and IVs Current Medications Medications (Trade) Dose Ordered Sig/Oswaldo Route Start Time Stop Time Status Last Admin (NS Flush) 2 ml UNSCH PRN IV FLUSH 12/03/17 15:30 (Morphine Inj) 4 mg Q3HR PRN IV PUSH 12/03/17 15:30 12/06/17 23:23 (Joffre 5-325 Mg) 1 tab Q4H PRN PO 12/03/17 15:30 12/04/17 07:02 (Vasotec Inj) 1.25 mg Q8H PRN IV PUSH 12/03/17 15:30 (Zofran Inj) 4 mg Q6H PRN IV PUSH 12/03/17 15:30 (Baciguent Oint) 1 applic BID TOP 12/03/17 21:00 12/07/17 19:57 (Hydrodiuril) 25 mg DAILY PO 12/04/17 09:00 12/07/17 08:08 (Tana-Colace) 1 tab BID PO 12/04/17 09:00 12/07/17 19:55 (Tylenol) 650 mg Q4H PRN PO 12/04/17 07:00 (Joffre 10-325 Mg) 1 tab Q4H PRN PO 12/04/17 07:00 12/07/17 19:55 Sodium Chloride 500 ml @ 30 mls/hr [id number] PRN IV 12/04/17 22:45 12/07/17 22:44 (Lopressor) 25 mg CLINICAL RESEARCHER PRN PO 12/04/17 22:45 12/07/17 22:44 (Betadine 5% Antisepsis Kit) 1 applic CLINICAL RESEARCHER PRN EACH NARE 12/04/17 22:45 12/07/17 22:44 (Chlorhexidine 2% Cloth) 3 pack CLINICAL RESEARCHER PRN TOPICAL 12/04/17 22:45 12/07/17 22:44 (NovoLIN R INJ) See Protocol Table ... CLINICAL RESEARCHER PRN SQ 12/04/17 22:45 12/07/17 22:44 (Lidoderm 5% Patch.12 Hr) 1 patch DAILY T-DERMAL 12/05/17 13:00 12/07/17 08:09 (Robaxin) 500 mg Q8HR PO 12/05/17 14:00 12/07/17 15:23 (Desyrel) 75 mg HS PO 12/05/17 21:00 12/07/17 19:54 Miscellaneous Information 1 Q24H T-DERMAL 12/05/17 21:00 12/07/17 19:59 (Lovenox Inj) 30 mg Q12HR SQ 12/06/17 18:15 12/07/17 19:54 Assessment and Plan Assessment and Plan 67-year-old male open reduction internal and external fixation of left foot fractures Patient examined and evaluated with all questions answered Left foot stable Patient to follow-up with foot and ankle surgeon once discharged within 1 week Patient states he is being anticoagulated with Xarelto, discussed risks of DVT with patient Patient to call Dr. Johnston with any questions Left foot splint to remain clean dry and intact Nonweightbearing left foot Tawny Herbert DPM Dec 07, 2017 21:21
[2017-12-08] VITALS: BP 141/80; PULSE 53; PULSE 61; RESP 18; TEMP 96.8; O2SAT 95
[2017-12-08 04:00] VITALS: BP 152/82; PULSE 54; PULSE 61; RESP 18; TEMP 97.2; O2SAT 96
[2017-12-08] MEDS: ACETAMINOPHEN/HYDROcodone 325 MG/10 MG TAB PO PRN ×2 (05:05→10:04)
[2017-12-08] MEDS: METHOCARBAMOL 500 MG TAB PO SCH (05:05)
[2017-12-08] MEDS: DOCUSATE SODIUM 50 MG/SENNA 8.6 MG TAB PO SCH (07:58)
[2017-12-08] MEDS: ENOXAPARIN SODIUM 30 MG/0.3 ML SYRINGE SQ SCH (07:58)
[2017-12-08] MEDS: HYDROCHLOROTHIAZIDE 25 MG TAB PO SCH (07:59)
[2017-12-08 08:00] VITALS: BP 160/92; PULSE 55; RESP 18; TEMP 96.3; O2SAT 98
[2017-12-08] MEDS: LIDOCAINE HCL 5% PATCH T-DERMAL SCH (08:06)
[2017-12-08] MEDS: BACITRACIN TOP OINT 15 GM TUBE TOP SCH (08:07)
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
--- NOTE | 2017-12-10 08:31 | MP ---
cc: VickieCitlalliileana CLEMENT DATE OF OPERATION: 12/06/2017 INDICATIONS: I discussed with the patient after his first surgery that he would likely need to undergo open reduction with internal fixation if his swelling had receded slightly in order to make an incision to the medial aspect of the foot due to the instability of that first metatarsal fracture. I discussed with him also that his third digit remained dislocated and would likely either need to be opened up, reduced or pinned in place. I also discussed with him that there is a good chance he would need further surgery later to either remove the bony fragment, remove some bone of the third metatarsal head in order to reduce pain in the area versus cortisone shots in the future to reduce arthritic pain in that joint because I did not feel that reduction would be accomplished without more extensive procedures to that toe. I discussed with him also that I did not feel comfortable at this time, until waiting to see if he was going to get any type of postoperative infection after having an open fracture that possibly communicated to that area, to go in and place an incision so close to his current incision where the second toe had to be reduced at that time, as it may set him up for both wound healing complications, as well, in that area and I felt like that toe needed to be addressed at a later date and would require a dorsal incision, a dressing of the joint, possible metatarsal osteotomy to shorten and decompress the joint, as well as reduction of the fracture to maintain his function of the toe at the metatarsophalangeal joint, which would not be occurring at his current admission, but could occur at a later date. If he is chooses to stay in town here with me or if he chooses to go out of town back to his hometown with another surgeon, that I would strongly recommend that he does undergo that procedure for that problem. I also discussed with him that his external fixators will stay in place, both medially and laterally, as well as the percutaneous pins that are extending from the second toe area as well as behind the fourth metatarsal area and that the pin on the medial aspect of the foot would be removed and replaced with internal fixation. The patient understood the procedures and consented to undergo open reduction internal fixation of the left first metatarsal with pinning of the third toe and adjustment of external fixator, left foot. DESCRIPTION OF OPERATION: The patient was seen in preop holding by myself, nursing staff, and anesthesia where the correct patient, side, and site were all confirmed to be correct in the left foot. He was then taken to the surgical suite in the supine position. The left foot was prepped and draped in the normal sterile fashion. Attention was directed to the left first metatarsal base where the fracture area was identified with C-arm. The external fixators were removed, but the pins were left in place. An incision was made to the dorsomedial aspect along the first metatarsal cuneiform joint to gain access to the fracture, taking care to avoid neurovascular structures. The fracture was identified and alignment of the first metatarsal cuneiform joint was achieved and confirmed with C-arm using multiple images followed by placement of a dorsomedial locking plate by [employer]. It was deemed necessary to keep the external fixator intact due to the instability of the fracture, as well as use one of the fragments to the plantar medial aspect of the first metatarsal cuneiform joint area with screw fixation using this plate; however, the fragment did remain reduced while the external fixator was left intact and was not reduced when the external fixator was loosened so it was deemed necessary to leave the external fixator intact medially. The external fixator was then reapplied both medially and laterally and alignment was confirmed with C-arm imaging. Following this, attention was directed to the plantar and lateral aspect of the third toe where a pin was placed percutaneously into the digit just to achieve some form of reduction of the third metatarsophalangeal joint dorsal dislocation. The toe was held temporarily in place knowing that a future surgery is likely to occur and has been recommended to the patient in the coming weeks to months. Following this, a dressing consisting of Xeroform, 4 x 4s, cast padding, posterior splint and Nicholas bandage were applied after closure with 3-0 Vicryl and 2-0 nylon. The external fixator again was reapplied and reduction was confirmed with C-arm imaging. Following this, the patient tolerated the procedure and anesthesia well without complications and was returned to PACU with vital signs stable and vascular status intact to the left foot. He will be nonweightbearing to the foot for an extended period of time. As discussed before, he will need the external fixator removed in approximately 6-[address] scan and he will coordinate with a doctor in his hometown for further treatment. I discussed with both he and his that he will need to have further surgery for both removal of hardware versus reduction of the fracture including possible osteotomy to the third toe to decompress the joint with reduction of the fracture at that area after the skin heals where the incision was made to the second metatarsophalangeal joint area as to have a viable skin bridge at the area to reduce wound healing potential complications. I also discussed that at that joint after that kind of trauma, he may have posttraumatic arthritic changes that may require further procedures in office or injections and he may be able to have a functional foot with reduced pain and orthotics and shoe gear long-term with oral versus injectable anti-inflammatories. SHORT OPERATIVE NOTE: SURGEON: Anuja Johnston MD TRUCKING SUPERVISOR: Staff. PREOPERATIVE DIAGNOSIS: 1. Left first metatarsal fracture, comminuted and displaced. 2. Third digit fracture dislocation of left third metatarsophalangeal joint. 3. Multiple left foot fractures. POSTOPERATIVE DIAGNOSIS: 1. Left first metatarsal fracture, comminuted and displaced. 2. Third digit fracture dislocation of left third metatarsophalangeal joint. 3. Multiple left foot fractures. PROCEDURE PERFORMED: 1. Open reduction with internal fixation of left first metatarsal fracture. 2. Percutaneous pinning of left third toe metatarsophalangeal joint dislocation. 3. Adjustment of external fixator, left foot. PROPHYLAXIS: 2 grams Ancef IV preop. COMPLICATIONS: None. SPECIMENS: None. ESTIMATED BLOOD LOSS: 10 mL. ANESTHESIA: General endotracheal anesthesia plus local consisting of 20 mL 0.25% Marcaine plain. CONDITION: Stable to PACU. DISPOSITION: Nonweightbearing left foot. He will need further surgery as above in the near future and will be nonweightbearing for an extended period of time. RACQUEL Layne/LUIZA , 07:24 AM , 08:29 AM
== END 2017-12-08 11:21 | disposition home health service (06) | DRG 504 ==
LOC: NEPI 13:53 → EDBD 15:05 → NEDA 15:05 → N06B 21:52
PROVIDERS: ADMIT Surgery; ATTEND Surgery
PROC: 0QSM35Z Reposition Left Tarsal with External Fixation Device, Percutaneous Approach (ICD-10-PCS; 2017-12-03)
PROC: 0QSP35Z Reposition Left Metatarsal with External Fixation Device, Percutaneous Approach (ICD-10-PCS; 2017-12-03)
PROC: 0CQ7XZZ Repair Tongue, External Approach (ICD-10-PCS; 2017-12-03)
PROC: 0QSP04Z Reposition Left Metatarsal with Internal Fixation Device, Open Approach (ICD-10-PCS; principal; 2017-12-03 18:00)
PROC: 0QSP04Z Reposition Left Metatarsal with Internal Fixation Device, Open Approach (ICD-10-PCS; 2017-12-06)
PROC: 0QSR34Z Reposition Left Toe Phalanx with Internal Fixation Device, Percutaneous Approach (ICD-10-PCS; 2017-12-06)
DX: S92.322B Displaced fracture of second metatarsal bone, left foot, initial encounter for open fracture (principal); S27.321A Contusion of lung, unilateral, initial encounter; S43.101A Unspecified dislocation of right acromioclavicular joint, initial encounter; S01.512A Laceration without foreign body of oral cavity, initial encounter; S42.031A Displaced fracture of lateral end of right clavicle, initial encounter for closed fracture; S92.212A Displaced fracture of cuboid bone of left foot, initial encounter for closed fracture; S92.312A Displaced fracture of first metatarsal bone, left foot, initial encounter for closed fracture; S92.342A Displaced fracture of fourth metatarsal bone, left foot, initial encounter for closed fracture; S92.512A Displaced fracture of proximal phalanx of left lesser toe(s), initial encounter for closed fracture; I10 Essential (primary) hypertension; E27.9 Disorder of adrenal gland, unspecified; G47.00 Insomnia, unspecified; V28.4XXA Motorcycle driver injured in noncollision transport accident in traffic accident, initial encounter; Y92.410 Unspecified street and highway as the place of occurrence of the external cause
CPT/HCPCS: 12011; 28470; 70450; 71045; 71260; 72125; 72170; 73000; 73620; 73630; 73700; 74177; 76000; 80048; 80053; 80307; 82948; 83036; 85014; 85018; 85025; 85610; 85730; 86850; 86900; 86901; 87015; 87070; 87102; 87116; 87205; 87206; 90715; 93005; 93880; 94150; 94640; 96374; 96375; 99291; C1713; G0390; J0131; J0690; J1100; J1170; J1580; J1650; J2175; J2270; J2370; J2405; J3010; J7030; J7120; Q9967